=== PATIENT | female | born 1975 | race Caucasian/White ===

== ENCOUNTER 2018-03-27 10:45 | Outpatient (RCR) | payer OTHER | END 2018-04-03 | disposition home or self-care (01) | LOC: WSST | DX: F64.9 Gender identity disorder, unspecified (principal) ==

== ENCOUNTER → 2019-01-03 | Outpatient (CLI) | payer OTHER | LOC: MC.RAD 13:28 | DX: F64.9 Gender identity disorder, unspecified (principal) ==

== ENCOUNTER → 2021-07-29 | Outpatient (CLI) | payer OTHER | LOC: MC.RAD 14:10 | DX: Z12.31 Encounter for screening mammogram for malignant neoplasm of breast (principal) ==

== ENCOUNTER → 2023-10-25 | Outpatient (CLI) | payer OTHER | LOC: MC.RAD 16:29 | DX: Z12.31 Encounter for screening mammogram for malignant neoplasm of breast (principal) ==